=== PATIENT | female | born 1985 | race Asian ===

== ENCOUNTER → 2020-11-16 | Outpatient (CLI) | payer OTHER ==
[2020-11-16 15:47] LABS: BASOPHIL % 0.5 % (0.2-1.3); PLATELET COUNT 237 x10^3mcL (179-408); RED CELL DISTRIBUTION WIDTH 15.3 % (12.3-17.7)
[2020-11-16 16:23] LABS: T4(THYROXINE) 16.7 ug/dL (4.7-13.3)
== END | disposition home or self-care (01) ==
LOC: LB 14:47
PROVIDERS: ATTEND Specialist
DX: Z34.90 Encounter for supervision of normal pregnancy, unspecified, unspecified trimester (principal); N39.0 Urinary tract infection, site not specified